=== PATIENT | female | born 1975 | race Caucasian/White ===

== ENCOUNTER 2021-01-26 16:33 | Emergency (ER) | payer MEDICARE, OTHER ==
[~2021-01-26 16:33] MED LIST: KEFLEX250 MG PO
[2021-01-26] MEDS ORDERED: VIBRAMYCIN100 MG PO (19:06)
[2021-01-26] MEDS ORDERED: NORCO 5-325 TA1 EACH PO (19:08)
== END 2021-01-26 20:43 | disposition home or self-care (01) ==
LOC: FER 16:33
DX: E10.65 Type 1 diabetes mellitus with hyperglycemia (principal); S81.801A Unspecified open wound, right lower leg, initial encounter; F17.210 Nicotine dependence, cigarettes, uncomplicated; W19.XXXA Unspecified fall, initial encounter
CPT/HCPCS: 73610